=== PATIENT | male | born 1990 ===

== ENCOUNTER 2017-04-08 06:15 | Day surgery (SDC) | payer OTHER ==
--- NOTE | 2017-03-29 13:12 | HP ---
CC: Sami Sorensen MD; Sergei Petersen MD * PREOPERATIVE HISTORY AND PHYSICAL: DATE OF PREOPERATIVE HISTORY AND PHYSICAL EXAMINATION: 03/26/17 DATE OF ADMISSION: Patient is scheduled for same-day surgery admission by Dr. Spangler on , 04/08/17. ATTENDING SURGEON: Tha Spangler MD (dictated by Aubrey Colin NP). CHIEF COMPLAINT: Right inguinal hernia. HISTORY OF PRESENT ILLNESS: The patient is a 26-year-old male with type 1 diabetes mellitus who was evaluated by Dr. Spangler in May 2016 with a right inguinal hernia. He was referred by Dr. Petersen at that time. 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 He denies any signs or symptoms to suggest incarceration or strangulation. He has opted for laparoscopic repair of the right inguinal hernia with mesh and Dr. Spangler discussed the nature of the surgical procedure, the relevant risks and benefits and alternatives and today I reviewed the typical postoperative care and recovery. The patient has had chance to ask us questions and stated that he understands the information and is satisfied with the answers given to his questions. He will sign surgical consent on the day of surgery. PAST MEDICAL HISTORY: Type 1 diabetes mellitus diagnosed at age 19 and he is followed by Dr. Sami Sorensen; celiac disease also diagnosed at age 19 by an upper endoscopy; and he states that has hereditary elevated cholesterol. PAST SURGICAL HISTORY: None. MEDICATIONS: Humalog insulin pump, which is a 3-day disposable pump; he states that he has used Lantus insulin in the past, but none currently. Benadryl and Zyrtec p.r.n. allergy symptoms. ALLERGIES: LEVEMIR caused mild rash. FAMILY HISTORY: No known anesthesia reactions, bleeding tendencies, or clotting disorders. SOCIAL HISTORY: He is single; he has never been a smoker. He drinks 1 to 2 glasses of wine with dinner daily. He denies use of other substances. He will be staying with his parents postoperatively. REVIEW OF SYSTEMS: Constitutional: Denies any recent illnesses. Cardiovascular: Denies any chest pain, pressure, palpitations, or syncopal episodes. Denies any history of deep vein thrombosis or pulmonary embolism. Respiratory: Denies any shortness of breath or chronic cough; denies any previous anesthesia reactions, but has never had general anesthesia. Gastrointestinal: Denies any chronic constipation, diarrhea, nausea, or vomiting. Genitourinary: Denies any dysuria. Denies any history of kidney stones. Musculoskeletal: Denies any complaints. Neurologic: Denies any complaints. He denies any bleeding tendencies and has never received a blood transfusion. He is a type 1 diabetic and has a very good understanding of his disease; fasting blood sugar typically runs between 130 and 140; he has a Humalog insulin pump, he counts carbs and he can remotely dose himself. He will consult with Dr. Sorensen regarding any adjustment to the insulin pump during the preoperative period, especially when he is fasting preoperatively. PHYSICAL EXAMINATION GENERAL SURVEY: The patient is a 26-year-old male, well developed, well nourished, in no acute distress. VITAL SIGNS: Height 70 inches, weight 138 pounds. Body mass index 19.8. Blood pressure 92/68, pulse 80 and regular, respiratory rate 16, temperature 97.1 tympanic. SKIN: Warm, dry, intact. HEENT: Benign. NECK: Supple. No cervical lymphadenopathy. BACK: No CVA tenderness. LUNGS: Breath sounds bilaterally clear and equal. HEART: Regular rate and rhythm. No murmurs or rubs appreciated. ABDOMEN: Active bowel sounds. Soft and nondistended. Nontender throughout. Humalog insulin pump, left mid abdomen. No umbilical hernia. Inguinal exam is done by Dr. Spangler revealed a right inguinal scrotal hernia, moderately large, soft, reducible, and nontender. Left inguinal region is without hernia. GENITALIA: Testes normally distended without palpable masses. RECTAL: Deferred. EXTREMITIES: Warm without edema or skin ulcerations. NEUROLOGIC: Alert and oriented x3. Steady gait. IMPRESSION: 1. Right inguinal hernia. 2. Type 1 diabetes mellitus. PLAN: Same-day surgery admission to Dr. Spangler's service on , 04/08/17 for laparoscopic repair of right inguinal hernia with mesh. AUBREY COLIN, HUSSEIN [id number]/[facility] #: [id number] MTDNahomi
[~2017-04-08 06:15] MED LIST: Buffered Lidocaine 0.9% SYRIN* 5 ML/SYR SYRINGE INTRADERM ONE; Famotidine IV* 10 MG/ML 2 ML (20 mg) IV ONE; Metoclopramide TAB* 10 MG PO ONE
[2017-04-08] MEDS ORDERED: Famotidine IV* 10 MG/ML 2 ML (20 mg) ONE (06:16)
[2017-04-08] MEDS ORDERED: Metoclopramide TAB* 10 MG ONE (06:17)
[2017-04-08] MEDS ORDERED: ceFAZolin 2 GM PREMIX(*) 2 GM/50 ML BAG IVPB ONE (06:17)
[2017-04-08] MEDS ORDERED: Buffered Lidocaine 0.9% SYRIN* 5 ML/SYR SYRINGE ONE (06:17)
[2017-04-08] MEDS ORDERED: Bupivacaine 0.25% EPI 200,000* 30 ML SDV ONE (06:59)
[2017-04-08] MEDS ORDERED: Propofol* 10 MG/ML 20 ML BTL IV PUSH ONE (07:29)
[2017-04-08] MEDS ORDERED: Dexamethasone IV* 4 MG/ML 1 ML (4 MG) ONE (07:29)
[2017-04-08] MEDS ORDERED: fentaNYL* 50 MCG/ML 2 ML VIAL (100 MCG VIAL) ONE (07:29)
[2017-04-08] MEDS ORDERED: Lidocaine 2% PF * 5 ML VIAL ONE (07:29)
[2017-04-08] MEDS ORDERED: Ketorolac INJ* 30 MG/ML 1 ML VIAL ONE (07:29)
[2017-04-08] MEDS ORDERED: Cisatracurium* 2 MG/ML MDV 5 ML ONE (07:29)
[2017-04-08] MEDS ORDERED: Ondansetron INJ* 2 MG/ML VIAL ONE (07:29)
[2017-04-08] MEDS ORDERED: KETAMINE HCL* 50 MG/ML 10 ML VIAL ONE (07:29)
[2017-04-08] MEDS ORDERED: Midazolam* 1 MG/ML 5 ML VIAL (5 MG) ONE (07:30)
[2017-04-08] MEDS ORDERED: EPHEDrine (Pressors)* 50 MG/ML VIAL ONE (08:24)
[2017-04-08] MEDS ORDERED: Glycopyrrolate IV* 0.2 MG/ML 1 ML VIAL ONE (08:38)
[2017-04-08] MEDS ORDERED: Neostigmine Methylsulfate* 2 MG/2 ML SYRINGE ONE (08:38)
[2017-04-08] MEDS ORDERED: Ondansetron INJ* 2 MG/ML VIAL IV PRN (08:44)
[2017-04-08] MEDS ORDERED: fentaNYL* 50 MCG/ML 2 ML VIAL (100 MCG VIAL) IV PRN (08:44)
[2017-04-08] MEDS ORDERED: oxyCODONE/Acetamin 5/325 MG* TAB PO PRN ×2 (08:44→08:50)
[2017-04-08] MEDS ORDERED: DiMENhydriNATE IV* 50 MG/ML VIAL IV PUSH PRN (08:44)
[2017-04-08 10:00] VITALS: BP 115/72
--- NOTE | 2017-04-09 06:19 | OP ---
CC: Dr. Sergei Petersen; Dr. Sami Sorensen * DATE OF OPERATION: 04/08/17 - [facility] DATE OF : [birth year] SURGEON: Tha Spangler MD [place] FOOD SERVER: SOWMYA Escobar ANESTHESIOLOGIST: Dr. Plaza. ANESTHESIA: General anesthetic, local infiltration. PRE-OP DIAGNOSIS: Right inguinal hernia. POST-OP DIAGNOSIS: Right inguinal hernia. OPERATIVE PROCEDURE: Laparoscopic repair of right inguinal hernia with mesh. DESCRIPTION OF PROCEDURE: The patient was supine on the operative table. After adequate general anesthetic, compression stockings, Sheyla Hugger warmer, and intravenous antibiotics, the abdomen was clipped and prepped with antiseptic , draped in a sterile fashion. Local infiltrative anesthesia was administered in all the sites. A small infraumbilical incision was created and the preperitoneal plane was developed using a balloon dissector. This was fairly limited to the right side dissection and a 12-mm cannula was placed; 5-mm infraumbilical and left paramedian was placed through small stab wounds under direct vision. The right preperitoneal space was well developed. There was a moderately large indirect hernia sac, which was dissected free and reduced to the cord structures and the vas deferens were kept out of harm's way. The epigastric vessels were out of harm's way. A medium- sized preperitoneal patch was put into place and was attached using absorbable tacks. This was done at the tubercle at the Moreno's ligament up over the direct space and lateral out towards the anterior iliac spine. This created excellent coverage. Everything was in excellent condition. Hemostasis was excellent. The cannulae were removed. Muscle was closed with 0 Polysorb and skin with 5-0 Polysorb followed by Steri-Strips. He tolerated the procedure well, was awakened, and brought to Recovery in good condition. No complications. No drains. No pathologic specimens. Estimated blood loss less than 10 mL. [id number]/[facility] [place] #: [id number] [facility]
== END 2017-04-08 10:34 | disposition home or self-care (01) ==
LOC: OR 06:15
PROVIDERS: ATTEND Surgery
DX: K40.90 Unilateral inguinal hernia, without obstruction or gangrene, not specified as recurrent (principal); E11.9 Type 2 diabetes mellitus without complications; Z79.4 Long term (current) use of insulin; Z96.41 Presence of insulin pump (external) (internal)
CPT/HCPCS: A9270-GY; C1776; C1781; J0690; J1100; J1885; J2250; J2405; J2704; J3010